=== PATIENT | female | born 1995 | race African-American/Black ===

== ENCOUNTER 2021-12-11 13:37 | Emergency (ER) | payer MEDICAID ==
[~2021-12-11] VITALS: Ht 170.2 cm; Wt 69.0 kg
[~2021-12-11 13:37] MED LIST: ALBU6.7H9 INH; ATROV INH; P50 MT
[2021-12-11] MEDS ORDERED: IPRATROPIUM/ALBUTEROL 0.5-3(2.5)MG/3ML NEB HHN ONE (14:00)
[2021-12-11] MEDS ORDERED: ALBUTEROL (0.083%) 2.5MG/3ML NEB HHN ONE ×4 (14:00→17:00)
[2021-12-11] MEDS ORDERED: PREDNISONE 20MG TABLET PO ONE (14:00)
[2021-12-11] MEDS ORDERED: MAGNESIUM 2 G PREMIX 50 ML IV ONE (14:15)
[2021-12-11] MEDS ORDERED: SODIUM CHLORIDE 0.9% 1,000 ML IV ONE (15:45)
[2021-12-11 16:20] LABS: HEMATOCRIT. 44.4 % (36.0-48.0); HEMOGLOBIN. 14.4 g/dL (12.0-16.0); MEAN CORPUSCULAR HEMOGLOBIN 26.5 pg (28.0-32.0); MEAN CORPUSCULAR VOLUME 81.6 fL (81.0-99.0); MEAN PLATELET VOLUME 8.8 fl (7.4-10.4); PLATELET 299 x1000/uL (130-400); RED BLOOD CELL COUNT 5.44 mill/uL (4.2-5.4); RED CELL DISTRIBUTION WIDTH 13.3 % (11.6-14.6)
[2021-12-11 16:28] LABS: CHLORIDE 106 mEq/L (98-107)
[2021-12-11 16:43] LABS: PLATELET ESTIMATE NORMAL
[2021-12-11 17:35] VITALS: BP 127/59
[2021-12-11] MEDS ORDERED: ALBU05 NEB (17:37)
[2021-12-11] MEDS ORDERED: P20 PO (17:37)
== END 2021-12-11 17:30 | disposition left against medical advice (07) ==
LOC: ER 13:37
DX: J45.21 Mild intermittent asthma with (acute) exacerbation (principal); R00.0 Tachycardia, unspecified
CPT/HCPCS: 36415; 71045; 80053; 84484; 85025; 94640; 96361; 96365; 99285; J3475; J7030; J7512; Z7610